=== PATIENT | female | born 1985 | race Caucasian/White ===

== ENCOUNTER 2018-08-10 06:11 | Inpatient (IN) | payer OTHER ==
[2018-08-10] MEDS ORDERED: IBUPROFEN 600 MG TAB PO ×2 (07:00→18:00)
[2018-08-10] MEDS ORDERED: MISOPROSTOL 200 MCG TAB PR ×2 (07:00→18:00)
[2018-08-10] MEDS ORDERED: CARBOPROST 250 MCG INJ IM ×2 (07:00→18:00)
[2018-08-10] MEDS ORDERED: METHYLERGONOVINE 0.2 MG INJ IM ×2 (07:00→18:00)
[2018-08-10] MEDS ORDERED: OXYTOCIN 30 UNITS/LR 500 ML IV ×3 (07:00→18:00)
[2018-08-10] MEDS ORDERED: LIDOCAINE 1% (MPF) 30 ML INJ INJ (07:00)
[2018-08-10] MEDS ORDERED: BUTORPHANOL 2 MG INJ IV (07:00)
[2018-08-10] MEDS: LACTATED RINGER'S 1,000 ML IV ×3 (07:16→15:37)
[2018-08-10] MEDS: AMPICILLIN 2 GM/NS (PMX) 100 ML IV (07:24)
[2018-08-10 08:25] LABS: ADD MAN DIFF? NO
[2018-08-10 08:29] LABS: WHITE BLOOD COUNT 10.5 10^3/ul (4.8-10.8)
[2018-08-10 08:29] LABS: BASOPHILS % 0.3 % (0.0-2.0); HEMOGLOBIN 12.1 g/dl (12.0-16.0); LYMPHOCYTES # 1.6 10^3/ul (0.8-2.9); LYMPHOCYTES % 15.2 % (15.0-51.0); MEAN CORPUSCULAR HEMOGLOBIN 29.6 pg (29.0-33.0); MEAN CORPUSCULAR HGB CONC 32.7 g/dl (32.0-37.0); MEAN CORPUSCULAR VOLUME 90.5 fl (82.0-101.0); MEAN PLATELET VOLUME 11.5 fl (7.4-10.4); MONOCYTE # 0.6 10^3/ul (0.3-0.9); MONOCYTES % 5.7 % (0.0-11.0); NEUTROPHIL # 8.3 10^3/ul (1.6-7.5); NEUTROPHILS % 78.4 % (39.0-77.0); PLATELET COUNT 226 10^3/UL (140-415); RED BLOOD COUNT 4.09 10^6/ul (4.20-5.40); RED CELL DISTRIBUTION WIDTH 13.4 % (11.5-14.5)
[2018-08-10 08:51] LABS: INR 0.89; PROTIME 12.2 Sec (11.9-14.9)
[2018-08-10 08:52] LABS: PARTIAL THROMBOPLASTIN TIME 32.1 Sec (23.0-35.0)
[2018-08-10 09:05] LABS: ALANINE AMINOTRANSFERASE 22 IU/L (13-69); ALBUMIN 3.1 g/dl (3.3-4.9); ALBUMIN/GLOBULIN RATIO 1.03; ALKALINE PHOSPHATASE 202 IU/L (42-121); ANION GAP 8 (5-13); ASPARTATE AMINO TRANSFERASE 25 IU/L (15-46); BILIRUBIN,INDIRECT 0.4 mg/dl (0-1.1); BILIRUBIN,TOTAL 0.4 mg/dl (0.2-1.3); BLOOD UREA NITROGEN 5 mg/dl (7-20); CALCIUM 8.5 mg/dl (8.4-10.2); CARBON DIOXIDE 21 mmol/L (21-31); CHLORIDE 110 mmol/L (97-110); Estimated GFR > 60 mL/min (>60); GLUCOSE 80 mg/dl (70-220); POTASSIUM 3.8 mmol/L (3.5-5.1); SODIUM 139 mmol/L (135-144); TOTAL PROTEIN 6.1 g/dl (6.1-8.1); URIC ACID 3.8 mg/dl (3.1-7.9)
[2018-08-10] MEDS ORDERED: ONDANSETRON 4 MG INJ IV ×2 (09:30→18:00)
[2018-08-10] MEDS ORDERED: HYDROmorphONE 0.5 MG/0.5 ML SYG IV ×2 (09:30)
[2018-08-10] MEDS ORDERED: DIPHENHYDRAMINE 50 MG INJ IV (09:30)
[2018-08-10] MEDS ORDERED: NALOXONE (0.4 MG/ML) INJ IV (09:30)
[2018-08-10] MEDS ORDERED: KETOROLAC 30 MG INJ IV (09:30)
[2018-08-10 09:35] LABS: HEPATITIS B SURFACE ANTIGEN NEGATIVE (NEGATIVE)
[2018-08-10] MEDS: FENTAnyl 2MCG/ML-ROPIV 0.2% 100 ML BAG EPI (10:29)
[2018-08-10] MEDS: AMPICILLIN 1 GM/NS (PMX) 50 ML IV (11:13)
[2018-08-10] MEDS: ACETAMINOPHEN 325 MG TAB PO (11:13)
[2018-08-10 11:36] LABS: ADD UMIC YES; UR ASCORBIC ACID NEGATIVE (NEGATIVE); UR BILIRUBIN (Dip) NEGATIVE (NEGATIVE); UR BLOOD (Dip) 2+ mg/dL (NEGATIVE); UR CLARITY CLEAR (CLEAR); UR COLOR YELLOW (YELLOW); UR GLUCOSE (Dip) NEGATIVE (NEGATIVE); UR KETONES (Dip) NEGATIVE (NEGATIVE); UR LEUKOCYTE ESTERASE (Dip) NEGATIVE Leu/ul (NEGATIVE); UR NITRITE (Dip) NEGATIVE (NEGATIVE); UR RBC 4 /HPF (0-5); UR SQUAMOUS EPITHELIAL CELL FEW /HPF (FEW); UR TOTAL PROTEIN (Dip) NEGATIVE (NEGATIVE); UR UROBILINOGEN (Dip) NEGATIVE (NEGATIVE); UR WBC 2 /HPF (0-5)
[2018-08-10] MEDS: OXYTOCIN 30 UNITS/LR 500 ML IV ×3 (14:04→21:57)
[2018-08-10] MEDS ORDERED: ACETAMINOPHEN 325 MG TAB PO (18:00)
[2018-08-10] MEDS ORDERED: NACL 0.9% 3 ML SYG IV (18:00)
[2018-08-10] MEDS ORDERED: DIPHENHYDRAMINE 25 MG CAP PO (18:00)
[2018-08-10] MEDS ORDERED: OXYCODONE/ASPIRIN (4.88/325) TAB PO (18:00)
[2018-08-10 20:48] LABS: RAPID PLASMA REAGIN NONREACTIVE (NR)
[2018-08-10] MEDS: WITCH HAZEL/GLYCERIN PAD PR (20:53)
[2018-08-10] MEDS: OXYCODONE/ASPIRIN (4.88/325) TAB PO (20:53)
[2018-08-10] MEDS: SENNA/DOCUSATE NA (8.6MG/50MG) TAB PO (20:53)
[2018-08-10] MEDS: BENZOCAINE 20% 56 ML SPRAY TOP (20:54)
[2018-08-11] MEDS: IBUPROFEN 600 MG TAB PO ×5 (00:07→23:45)
[2018-08-11] MEDS: LANOLIN HPA 1 PKT TOP (05:51)
[2018-08-11 07:46] LABS: ADD MAN DIFF? NO
[2018-08-11 07:50] LABS: BASOPHILS % 0.2 % (0.0-2.0); HEMATOCRIT 34.5 % (37.0-47.0); HEMOGLOBIN 11.1 g/dl (12.0-16.0); LYMPHOCYTES % 16.4 % (15.0-51.0); MEAN CORPUSCULAR HEMOGLOBIN 29.5 pg (29.0-33.0); MEAN CORPUSCULAR HGB CONC 32.2 g/dl (32.0-37.0); MEAN CORPUSCULAR VOLUME 91.8 fl (82.0-101.0); MEAN PLATELET VOLUME 11.6 fl (7.4-10.4); MONOCYTE # 0.9 10^3/ul (0.3-0.9); MONOCYTES % 6.9 % (0.0-11.0); NEUTROPHIL # 9.4 10^3/ul (1.6-7.5); NEUTROPHILS % 75.9 % (39.0-77.0); PLATELET COUNT 184 10^3/UL (140-415); RED BLOOD COUNT 3.76 10^6/ul (4.20-5.40); RED CELL DISTRIBUTION WIDTH 13.5 % (11.5-14.5)
[2018-08-11 07:50] LABS: WHITE BLOOD COUNT 12.4 10^3/ul (4.8-10.8)
[2018-08-11] MEDS: SENNA/DOCUSATE NA (8.6MG/50MG) TAB PO ×2 (09:05→21:05)
[2018-08-11] MEDS ORDERED: IBUPROFEN 600 MG TAB PO (12:00)
[2018-08-11] MEDS: OXYCODONE/ASPIRIN (4.88/325) TAB PO (21:21)
[2018-08-12] MEDS: IBUPROFEN 600 MG TAB PO ×2 (05:40→12:35)
[2018-08-12] MEDS: OXYCODONE/ASPIRIN (4.88/325) TAB PO (09:11)
[2018-08-12] MEDS: SENNA/DOCUSATE NA (8.6MG/50MG) TAB PO (09:11)
== END 2018-08-12 16:00 | disposition home or self-care (01) | DRG 807 ==
LOC: OBT 06:11 → L-D 06:13 → OBT 06:35 → L-D 06:35 → PP1 19:44
PROVIDERS: Obstetrics & Gynecology
PROC: 10E0XZZ Delivery of Products of Conception, External Approach (ICD-10-PCS; principal; 2018-08-10)
PROC: 0HQ9XZZ Repair Perineum Skin, External Approach (ICD-10-PCS; 2018-08-10)
DX: O70.0 First degree perineal laceration during delivery (principal); Z37.0 Single live birth; Z3A.39 39 weeks gestation of pregnancy
CPT/HCPCS: 62322; 76815; 80053; 81001; 84560; 85025; 85610; 85730; 86592; 86850; 86900; 86901; 87340